=== PATIENT | female | born 1940 | race Caucasian/White ===

== ENCOUNTER 2016-03-01 09:35 | Inpatient (IN) | payer MEDICARE ==
[~2016-03-01] VITALS: Ht 172.7 cm; Wt 69.0 kg
[2016-03-01] MEDS ORDERED: TYLE650T9 PO (13:16)
[2016-03-01] MEDS ORDERED: METO100T PO (13:16)
[2016-03-22] MEDS ORDERED: HYDR-3288 PO (07:24)
[2016-03-22] MEDS ORDERED: APIX2.5T PO (07:25)
[2016-03-22 07:56] VITALS: BP 173/86; PULSE 63; RESP 18; TEMP 97.9; O2SAT 98
[2016-03-22] MEDS ORDERED: ceFAZolin 2 GM PREMIX 50 ML ONE (08:21)
[2016-03-22] MEDS ORDERED: DEXAMETHASONE SOD PHOS 20 MG/5 ML VIAL ONE (08:21)
[2016-03-22] MEDS ORDERED: VANCOMYCIN HCL 1000 MG VIAL ONE (08:21)
[2016-03-22] MEDS ORDERED: SODIUM CHLOR 0.9% 250 ML INJ 250 ML ONE (08:22)
[2016-03-22] MEDS ORDERED: VANCOMYCIN 1000 MG/NS 250 ML (for <70 kg) IV SCH ×2 (08:30)
[2016-03-22] MEDS ORDERED: ceFAZolin 2 GM PREMIX 50 ML IV SCH (08:30)
[2016-03-22] MEDS: POVIDONE IODINE 7.5% SCRUB 118 ML BOTTLE TOP SCH (08:30)
[2016-03-22] MEDS ORDERED: DEXAMETHASONE SOD PHOS 20 MG/5 ML VIAL IV SCH (08:30)
[2016-03-22] MEDS ORDERED: ROPIVACAINE PERI-ARTICULAR INJECTION. PERIART SCH ×5 (08:30)
[2016-03-22] MEDS: CHLORHEXIDINE GLUCONATE 4% SOLN 120 ML BTL TOP SCH (08:30)
[2016-03-22] MEDS ORDERED: LACTATED RINGER'S 1000 ML IV SCH (08:45)
[2016-03-22] MEDS ORDERED: TRANEXAMIC PERI-ARTICULAR 3,000 MG/NS 100 ML P-ARTICULR SCH ×2 (08:45)
[2016-03-22] MEDS ORDERED: SODIUM CHLORID 0.9% 500 ML IV SCH (08:45)
[2016-03-22] MEDS ORDERED: INSULIN HUMAN REGULAR 1,000 UNITS/10 ML VIAL SQ PRN (08:45)
[2016-03-22] MEDS ORDERED: METOPROLOL TARTRATE 25 MG TAB PO PRN (08:45)
[2016-03-22] MEDS ORDERED: EXPAREL PERI-ARTICULAR INJECTION (TOTAL VOL. 60 ML) P-ARTICULR SCH ×2 (08:45)
[2016-03-22] MEDS ORDERED: BISACODYL 10 MG SUPP PR PRN (09:00)
[2016-03-22] MEDS ORDERED: ALUMINUM/MAGNESIUM/SIMETH 30 ML CUP PO PRN (09:00)
[2016-03-22] MEDS ORDERED: NALOXONE HCL 0.4 MG/ML AMP IV PRN (09:00)
[2016-03-22] MEDS ORDERED: ACETAMINOPHEN/HYDROcodone 325 MG/7.5 MG TAB PO PRN (09:00)
[2016-03-22] MEDS ORDERED: ONDANSETRON HCL 4 MG/2 ML VIAL IVP PRN (09:00)
[2016-03-22] MEDS ORDERED: ZOLPIDEM TARTRATE 5 MG TAB PO PRN (09:00)
[2016-03-22] MEDS ORDERED: MAGNESIUM HYDROXIDE SUSP 30 ML CUP PO PRN (09:00)
[2016-03-22] MEDS ORDERED: MIDAZOLAM HCL 5 MG/5 ML VIAL ONE (09:00)
[2016-03-22] MEDS ORDERED: SODIUM CHLORIDE 0.9% FLUSH 5 ML FLUSH IVF PRN (09:00)
[2016-03-22] MEDS ORDERED: MORPHINE SULFATE 4 MG/ML INJ IV PUSH PRN (09:00)
[2016-03-22] MEDS ORDERED: diphenhydrAMINE HCL 50 MG/ML VIAL IV PRN (09:00)
[2016-03-22] MEDS ORDERED: GENTAMICIN SULFATE 80 MG/2 ML VIAL ONE ×2 (09:34→11:46)
[2016-03-22] MEDS ORDERED: TRANEXAMIC ACID INJ 1,005 MG in SODIUM CHLORIDE 0.9% INJ 100 ML IV SCH (10:00)
[2016-03-22] MEDS ORDERED: PROPOFOL 200 MG/20 ML AMP IV ONE (11:45)
[2016-03-22] MEDS ORDERED: LACTATED RINGER'S 1000 ML INJ 1,000 ML IV ONE (11:45)
[2016-03-22] MEDS ORDERED: ONDANSETRON HCL 4 MG/2 ML VIAL IV PUSH ONE (11:45)
[2016-03-22] MEDS ORDERED: BUPIVACAINE LIPOSOME PF 1.3% 20 ML VIAL ONE (12:41)
[2016-03-22] MEDS: SODIUM CHLOR 0.9% 1000 ML INJ 1,000 ML IV SCH ×2 (12:45→20:00)
[2016-03-22] MEDS ORDERED: Post-op Orders (for Pharmacy) MISC XX ONE (12:46)
[2016-03-22] MEDS ORDERED: DO NOT ADM ANY ANTICOAGULANT DRUGS XX PRN (13:00)
[2016-03-22] MEDS ORDERED: MIDAZOLAM HCL 2 MG/2 ML VIAL ONE (13:49)
--- NOTE | 2016-03-22 13:53 | RADRPT ---
EXAM DATE/TIME: 03/22/2016 13:10 [facility] COMPARISON: No previous studies available for comparison. INDICATIONS: Post op right knee MEDICAL HISTORY: None. SURGICAL HISTORY: Total knee replacement, right. ENCOUNTER: Initial ACUITY: 1 day PAIN SCORE: Non-responsive. LOCATION: Right knee FINDINGS: The patient is status post right total knee arthroplasty. The prosthesis appears to be in good posit ion. CONCLUSION: 1. Status post right total arthroplasty with prosthesis in good position. Frank Lo MD on March 22, 2016 at 13:46 Board Certified Radiologist. This report was verified electronically.
[2016-03-22] MEDS ORDERED: *morphine SULFATE 8 MG/ML PERIprocedure ONLY ONE (17:10)
--- NOTE | 2016-03-22 17:24 | PD.CONS ---
HPI Service [facility] Hospitalists Consult Requested By Dr. Farhan Jensen Reason for Consult Medical management Primary Care Physician Jaymie Monroy M.D. Diagnoses: History of Present Illness Ms. Ramirez is a pleasant 76 y/o female with HTN, hyperlipidemia, and osteoarthritis. Pt was [place] [facility] [place] for elective right total knee arthroplasty. [facility] Hospitalist team was consulted to help with managing the pts chronic medical issues. She is seen post-operatively and is without any specific complaints. Her vital signs are stable. No nausea or vomiting pain is currently controlled. Denies any chest pain, SOB, palpitations, dizziness, or abd pain. 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, being followed by PCP Past Surgical History Oral surgery Reported Medications Tylenol 8 Hour Arthritis 650 Mg Tab 2 Tab PO Q8HR PRN Metoprolol Tartrate 100 Mg PO BID Allergies: Coded Allergies: Cipro (Unverified Adverse Reaction, Unknown, 03/22/16) Family History Noncontributory Social History Denies any alcohol, tobacco or illicit drug use Physical Exam Vital Signs Vital Signs Date Time Temp Pulse Resp B/P Pulse Ox O2 Delivery O2 Flow Rate FiO2 03/22/16 15:30 60 15 131/82 96 Nasal Cannula 3 03/22/16 15:00 61 15 148/75 96 Nasal Cannula 3 03/22/16 14:30 58 15 135/71 96 Nasal Cannula 3 03/22/16 14:00 66 15 130/65 96 Nasal Cannula 3 03/22/16 13:45 65 15 135/72 96 Nasal Cannula 3 03/22/16 13:30 66 15 131/70 98 Nasal Cannula 3 03/22/16 13:15 72 15 163/60 98 Nasal Cannula 3 03/22/16 13:00 72 15 163/60 98 Nasal Cannula 3 03/22/16 12:42 98.1 72 15 159/88 98 Nasal Cannula 3 03/22/16 07:56 97.9 63 18 173/86 98 Physical Exam GENERAL: This is a well-nourished, well-developed patient, in no apparent distress. HEENT: Atraumatic. Normocephalic. No temporal or scalp tenderness. No scleral icterus. Airway patent. NECK: Trachea midline, supple, nontender. CARDIO: Regular. RESP: CTA bilaterally. No wheezes, rales, or rhonchi. ABD: +BS, soft, non-tender, nondistended. EXT: Right knee bandages are c/d/i NEURO: Awake and alert. Motor and sensory grossly within normal limits. Normal speech. Laboratory Laboratory Tests Test 03/22/16 07:54 Blood Type A POSITIVE Antibody Screen NEGATIVE Blood Bank Comment Date/Time Procedure Status Source Growth 03/22/16 11:24 Gram Stain - Final Resulted Wound Knee 03/22/16 11:24 Wound Culture Resulted Wound Knee Pending 03/22/16 11:24 Fungal Smear - Final Resulted Wound Knee NO FUNGAL ELEMENTS SEEN. 03/22/16 11:24 Fungal Culture Resulted Wound Knee Pending 03/22/16 11:24 Acid Fast Stain Received Wound Knee Pending 03/22/16 11:24 Mycobacterial Culture Received Wound Knee Pending Imaging Last Impressions Knee X-Ray 03/22/16 0855 Signed Impressions: Service Date/Time: Tuesday, March 22, 2016 13:10 - CONCLUSION: 1. Status post right total arthroplasty with prosthesis in good position. Frank Lo MD Assessment and Plan Problem List: (1) Primary localized osteoarthrosis, lower leg Status: Chronic Plan: - Pt s/p right total knee arthroplasty on 03/22/[address] Jensen - Post-op pain control per Ortho - PT daily - IS - Constipation precautions - DVT prophylaxis (2) HTN (hypertension) Status: Chronic Plan: - Cont. home meds - Monitor Assessment and Plan Patient examined. Assessment and plan formulated with Emilie Woo PA-C. I agree with the above. pt medically stable home bp meds resumed. d/c carley in AM. anticoagulation ordered PT.IS. C planned. Problem Qualifiers (1) Primary localized osteoarthrosis, lower leg: Qualified Code: M17.11 - Primary localized osteoarthrosis, lower leg, right Emilie Woo Mar 22, 2016 17:24 Alli Vallecillo MD Mar 22, 2016 21:33
[2016-03-22 17:45] VITALS: BP 158/74; PULSE 74; RESP 18; TEMP 97.2; O2SAT 99
[2016-03-22 20:00] VITALS: BP 131/66; PULSE 74; RESP 18; TEMP 97.6; O2SAT 100
[2016-03-22] MEDS: METOPROLOL TARTRATE 100 MG TAB PO SCH (20:00)
[2016-03-22] MEDS: SODIUM CHLORIDE 0.9% FLUSH 5 ML FLUSH IVF SCH (21:00)
[2016-03-23] VITALS (7 sets, daily range): BP systolic 102–134; BP diastolic 56–64; PULSE 53–80; RESP 16–18; TEMP 96.4–98.1; O2SAT 95–100
[2016-03-23] MEDS: ACETAMINOPHEN/HYDROcodone 325 MG/7.5 MG TAB PO PRN ×4 (03:19→21:33)
[2016-03-23] MEDS: SODIUM CHLOR 0.9% 1000 ML INJ 1,000 ML IV SCH ×2 (04:55→14:55)
[2016-03-23 06:10] LABS: MEAN CELL VOLUME 84.3 FL (80.0-100.0); MEAN CORPUSCULAR HEMOGLOBIN 27.6 PG (27.0-34.0); MEAN CORPUSCULAR HGB CONC 32.8 % (32.0-36.0); PLATELET COUNT 382 TH/MM3 (150-450); RED BLOOD COUNT 3.68 MIL/MM3 (4.00-5.30); RED CELL DISTRIBUTION WIDTH 15.6 % (11.6-17.2); REVIEW FLAG FINAL; WHITE BLOOD COUNT 15.2 TH/MM3 (4.0-11.0)
[2016-03-23 06:30] LABS: BICARBONATE 23.6 MEQ/L (21.0-32.0); POTASSIUM 4.1 MEQ/L (3.5-5.1)
[2016-03-23] MEDS: CHLORHEXIDINE GLUCONATE 4% SOLN 120 ML BTL TOP SCH (08:30)
[2016-03-23] MEDS: METOPROLOL TARTRATE 100 MG TAB PO SCH ×2 (09:00→20:27)
--- NOTE | 2016-03-23 09:07 | MP ---
cc: YOVANI CARBAJAL DATE OF SURGERY 03/22/2016 PREOPERATIVE DIAGNOSIS Right knee osteoarthritis. POSTOPERATIVE DIAGNOSES Right knee osteoarthritis. PROCEDURE Right total knee arthroplasty. SURGEON Dr. Yovani Carbajal [employer] Keaton Brown PA-C ANESTHESIA General with adductor canal block. ESTIMATED BLOOD LOSS 50 cc. TOURNIQUET TIME 46 minutes at 250 mmHg. COMPLICATIONS None. IMPLANTS USED DePuy Attune size 7 posterior stabilized femoral component, size 6 rotating platform tibial baseplate, size 35-mm patella, size 5-mm polyethylene tibial insert. JUSTIFICATION This patient is a 76-year-old female with a history of severe end-stage osteoarthritis involving the right knee. She has severe disabling pain with standing, walking, ambulation, weightbearing activities and even severe pain at rest. It does interfere with activities of daily living. She has failed greater than three months of nonoperative conservative treatment to include medication therapy, injections, ambulatory assistive aids, home exercise program, activity modification. X-rays of the right knee reveal severe end-stage osteoarthritis with joint space narrowing, subchondral sclerosis, subchondral cysts, osteophyte formation and varus deformity. The patient was counseled as to the risks, benefits and alternatives to a total knee arthroplasty. The risks were discussed which include but are not limited to anesthesia, bleeding, infection, damage to nerves, blood vessels, pain, stiffness, failure of the components, blood clots, pulmonary embolism and even . The patient's pain was severe. She favored the benefits over the risks and did wish to proceed with surgery. PROCEDURE IN DETAIL Written consent was obtained. The patient was identified by name and taken to the operating room, placed supine on the operating room table. General anesthesia was administered as well as 2 grams of IV Ancef and 1 gram of IV vancomycin. A well-padded tourniquet was placed on the right thigh, the right lower extremity prepped and draped using isopropyl alcohol, Hibiclens solution and ChloraPrep solution. An Esmarch bandage was used to exsanguinate the right lower extremity and the tourniquet inflated to 250 mmHg. A longitudinal incision was made over the anterior aspect of the right knee and medial parapatellar arthrotomy incision was performed. The patella was everted. Patella resection guide was used to resect 9.5 mm of patella. The size 35-mm patella guide was placed, three drill holes were placed and the 35-mm trial fit well. Attention was turned to the femur where an intramedullary guide flavio was placed. The distal femoral guide was set to remove 9 mm of distal femur 5 degrees off the anatomic valgus axis alignment. An oscillating saw was used to perform the distal femoral cut. The extramedullary tibial guide was then pinned in place. The tibial cut was performed with 5 mm resected off the lowest portion of the medial tibial plateau. A 5-mm spacer block showed full extension. Attention was turned back to the femur where the AP sizer block measured a size 7. The anterior reference 3-degree external rotational guide was used to pin a size [address] The anterior, posterior and chamfer cuts were performed. The size 7 PCL box guide was pinned in place and the PCL was boxed out with an oscillating saw. The medial and lateral meniscus remnants were removed as well as bone and soft tissue debris from the posterior portion of the knee. The size 6 tibial baseplate was pinned in place, the tibia was drilled and punched. Trial components were evaluated and final components cemented in place. With the 5-mm tibial insert the leg could achieve full extension to 0 degrees and flexion to 140 with no evidence of tibial lift-off, varus-valgus balance appeared appropriate and symmetric and the patella was noted to track centrally. The tourniquet was deflated, Bovie cautery was used for hemostasis. The knee was thoroughly irrigated with sterile saline pulse lavage antibiotic impregnated solution. The arthrotomy incision was closed with #1 Vicryl suture, the subcutaneous layer closed with 2-0 Vicryl suture and the skin was closed with Dermabond. Sterile dressing applied. The patient tolerated the procedure well. There were no intraoperative complications noted. Keaton Brown, physician executive marketing assistant certified, was present during the entire procedure to include patient positioning and the procedure itself. The medical necessity of a physician executive marketing assistant was indicated in this case due to the complexity of the procedure. He assisted with appropriate manipulation of the leg, retraction of muscle, tendon, bone and neurovascular structures. He also assisted with bone cuts and also implantation of the prosthetic replacement. Yovani Carbajal MD JWSaman/KO /12:17 PM /8:51 AM
[2016-03-23] MEDS: SODIUM CHLORIDE 0.9% FLUSH 5 ML FLUSH IVF SCH ×2 (09:13→20:27)
--- NOTE | 2016-03-23 10:01 | PD.ORT.PN ---
Subjective Post Op Day #: 1 Subjective Remarks doing well. pain tolerable. Objective Vitals Vital Signs Date Time Temp Pulse Resp B/P Pulse Ox O2 Delivery O2 Flow Rate FiO2 03/23/16 09:24 98 21 03/23/16 08:10 96.4 63 16 102/60 95 03/23/16 04:00 96.7 53 18 103/58 96 03/23/16 00:00 96.4 56 18 105/57 97 03/22/16 20:00 97.6 74 18 131/66 100 03/22/16 17:45 97.2 74 18 158/74 99 03/22/16 17:15 97.8 71 17 149/75 97 Nasal Cannula 3 03/22/16 17:00 77 17 155/75 94 Nasal Cannula 3 03/22/16 16:30 70 16 155/81 96 Nasal Cannula 3 03/22/16 16:00 70 16 116/83 96 Nasal Cannula 3 03/22/16 15:30 60 15 131/82 96 Nasal Cannula 3 03/22/16 15:00 61 15 148/75 96 Nasal Cannula 3 03/22/16 14:30 58 15 135/71 96 Nasal Cannula 3 03/22/16 14:00 66 15 130/65 96 Nasal Cannula 3 03/22/16 13:45 65 15 135/72 96 Nasal Cannula 3 03/22/16 13:30 66 15 131/70 98 Nasal Cannula 3 03/22/16 13:15 72 15 163/60 98 Nasal Cannula 3 03/22/16 13:00 72 15 163/60 98 Nasal Cannula 3 03/22/16 12:42 98.1 72 15 159/88 98 Nasal Cannula 3 I/O 03/22/16 03/22/16 03/22/16 03/23/16 03/23/16 03/23/16 07:00 15:00 23:00 07:00 15:00 23:00 Intake Total 1100 ml 1355 ml 480 ml Output Total 300 ml 350 ml 850 ml Balance 800 ml 1005 ml -370 ml Intake Oral 480 ml 480 ml IV Total 875 ml Other 1100 ml Output Urine Total 100 ml 350 ml 850 ml Estimated Blood Loss 200 ml Result Diagram: 03/23/16 0542 03/23/16 0542 Objective Remarks in chair, nad dressing c/d/i beena king nvi Assessment & Plan Ortho Post Op Day #: 1 Problem List: Assessment and Plan s/p R TKA wbat daily dressing changes lovenox - d/c on eliquis d/c planning home with [facility] and pt rx in chart f/up dr. bueno 2 weeks Farhan Brown Mar 23, 2016 10:01
--- NOTE | 2016-03-23 10:02 | HHI.DCPOC ---
Discharge Care Plan Diagnosis: (1) Primary localized osteoarthrosis, lower leg Your Health Problems Are: Difficulty with ADL Goals to Promote Your Health * To prevent worsening of your condition and complications * To maintain your health at the optimal level Directions to Meet Your Goals Take your medications as prescribed Follow your dietary instruction Follow activity as directed Keep your appointments as scheduled Take your immunizations and boosters as scheduled If your symptoms worsen call your PCP, if no PCP go to Urgent Care Center or Emergency Room Smoking is Dangerous to Your Health. Avoid second hand smoke Call the 24-hour hour crisis hotline for domestic abuse at Farhan Brown Mar 23, 2016 10:02
--- NOTE | 2016-03-23 10:03 | HHI.FF ---
Face to Face Verification Diagnosis: (1) Primary localized osteoarthrosis, lower leg Physical Therapy Gait training, Safety evaluation, Transfer training, bed to chair Knee: Total knee, Protocol: Right Right LE Weight Bearing: WB as tolerated Nursing RN: 3 days/week x 2 weeks Nursing: Dressing changes Dressing Changes: Daily dressing change I have seen patient Jigna Ramirez on 03/23/16. My clinical findings support the need for the requested home health care services because: Limited ability to care for self High risk of falls I certify that my clinical findings support that this patient is homebound because: Post-op weakness Unsteady gait/balance Farhan Brown Mar 23, 2016 10:03
[2016-03-23] MEDS ORDERED: WALKER WHEELS/F1 MIS (10:04)
[2016-03-23] MEDS ORDERED: MISC-163 (10:04)
[2016-03-23] MEDS ORDERED: CPMMACHINE (10:04)
[2016-03-23] MEDS: ENOXAPARIN SODIUM 40 MG/0.4 ML SYRINGE SQ SCH (13:06)
[2016-03-23] MEDS: DOCUSATE SODIUM 100 MG CAP PO SCH (20:27)
[2016-03-23] MEDS: MULTIVITAMINS/MINERALS THERAPEUTIC TAB PO SCH (20:27)
[2016-03-24 00:54] VITALS: BP 115/56; PULSE 97; RESP 18; TEMP 98.1; O2SAT 97
[2016-03-24] MEDS: SODIUM CHLOR 0.9% 1000 ML INJ 1,000 ML IV SCH ×2 (00:55→10:55)
[2016-03-24] MEDS: ACETAMINOPHEN/HYDROcodone 325 MG/7.5 MG TAB PO PRN ×4 (02:34→15:49)
[2016-03-24 04:39] VITALS: BP 127/68; PULSE 84; RESP 18; TEMP 98; O2SAT 98
[2016-03-24 06:23] LABS: MEAN CELL VOLUME 85.2 FL (80.0-100.0); MEAN CORPUSCULAR HEMOGLOBIN 28.4 PG (27.0-34.0); MEAN CORPUSCULAR HGB CONC 33.3 % (32.0-36.0); PLATELET COUNT 360 TH/MM3 (150-450); RED BLOOD COUNT 3.52 MIL/MM3 (4.00-5.30); RED CELL DISTRIBUTION WIDTH 15.8 % (11.6-17.2); REVIEW FLAG FINAL
[2016-03-24 06:53] LABS: BICARBONATE 26.2 MEQ/L (21.0-32.0); POTASSIUM 3.8 MEQ/L (3.5-5.1)
[2016-03-24] MEDS: CHLORHEXIDINE GLUCONATE 4% SOLN 120 ML BTL TOP SCH (08:21)
[2016-03-24 08:24] VITALS: BP 106/59; PULSE 64; RESP 18; TEMP 97.8; O2SAT 97
[2016-03-24] MEDS: POVIDONE IODINE 7.5% SCRUB 118 ML BOTTLE TOP SCH (08:30)
[2016-03-24] MEDS: SODIUM CHLORIDE 0.9% FLUSH 5 ML FLUSH IVF SCH (09:00)
[2016-03-24] MEDS: METOPROLOL TARTRATE 100 MG TAB PO SCH (09:00)
--- NOTE | 2016-03-24 09:18 | PD.ORT.PN ---
Subjective Post Op Day #: 2 Subjective Remarks doing well. pain tolerable. feeling better and ready to go home. Objective Vitals Vital Signs Date Time Temp Pulse Resp B/P Pulse Ox O2 Delivery O2 Flow Rate FiO2 03/24/16 08:24 97.8 64 18 106/59 97 03/24/16 04:39 98.0 84 18 127/68 98 03/24/16 00:54 98.1 97 18 115/56 97 03/23/16 21:20 98.1 80 16 134/62 97 03/23/16 16:20 97.6 66 16 118/56 100 03/23/16 12:30 97.1 66 18 118/64 97 03/23/16 09:24 98 21 I/O 03/23/16 03/23/16 03/23/16 03/24/16 03/24/16 03/24/16 07:00 15:00 23:00 07:00 15:00 23:00 Intake Total 480 ml 860 ml 240 ml 240 ml Output Total 850 ml Balance -370 ml 860 ml 240 ml 240 ml Intake Oral 480 ml 860 ml 240 ml 240 ml Output Urine Total 850 ml # Voids 3 2 2 # Bowel Movements 0 0 Result Diagram: 03/24/1612 03/24/16511 Objective Remarks in bed, nad incision no erythema, no drainage neg homans nvi Assessment & Plan Ortho Post Op Day #: 2 Problem List: Assessment and Plan s/p R TKA wbat daily dressing changes lovenox - d/c on eliquis d/c planning home with [facility] and pt - cleared for d/c today rx in chart f/up dr. bueno 2 weeks Farhan Brown Mar 24, 2016 09:18
[2016-03-24] MEDS: MULTIVITAMINS/MINERALS THERAPEUTIC TAB PO SCH (09:25)
[2016-03-24] MEDS: DOCUSATE SODIUM 100 MG CAP PO SCH (09:25)
[2016-03-24] MEDS: ENOXAPARIN SODIUM 40 MG/0.4 ML SYRINGE SQ SCH (11:22)
[2016-03-24 12:30] VITALS: BP 118/56; PULSE 66; RESP 16; TEMP 98.1; O2SAT 96
== END 2016-03-24 16:18 | disposition home health service (06) | DRG 470 ==
LOC: HSDI 03-22 06:57 → N06B 03-22 17:35
PROVIDERS: ADMIT Orthopaedic Surgery Sports Medicine; ATTEND Orthopaedic Surgery Sports Medicine
PROC: 3E0T3CZ (ICD-10-PCS; 2016-03-22)
PROC: 0SRC0J9 Replacement of Right Knee Joint with Synthetic Substitute, Cemented, Open Approach (ICD-10-PCS; principal; 2016-03-22 10:22)
DX: M17.11 Unilateral primary osteoarthritis, right knee (principal); I10 Essential (primary) hypertension; E78.5 Hyperlipidemia, unspecified; R91.8 Other nonspecific abnormal finding of lung field
CPT/HCPCS: 73560; 80048; 85027; 86850; 86900; 86901; 87015; 87070; 87102; 87116; 87205; 87206; 94150; C1776; C9290; J0171; J0690; J0735; J1100; J1580; J1650; J1885; J2250; J2270; J2405; J2795; J3010; J3370; J7030; J7050; J7120; L1830

== ENCOUNTER 2016-06-14 09:57 | Inpatient (IN) | payer MEDICARE ==
[~2016-06-14] VITALS: Ht 172.7 cm; Wt 75.1 kg
[~2016-06-14 09:57] MED LIST changes: -ACET1CAP18 PO; -APIX2.5T PO; -ASPI81TA2 PO; -CPMMACHINE; -ENOX40P SQ; -HYDR-3288 PO; -MISC-163; -PERC5TAB12 PO; -WALKER WHEELS/F1 MIS
[2016-06-30] MEDS ORDERED: NEOSTIGMINE 3 MG/3 ML SYR IV ONE (12:00)
[2016-06-30] MEDS ORDERED: PROPOFOL 200 MG/20 ML AMP IV ONE (12:00)
[2016-06-30] MEDS ORDERED: ONDANSETRON HCL 4 MG/2 ML VIAL IV PUSH ONE (12:00)
[2016-06-30] MEDS ORDERED: ePHEDrine/NS 25 MG/5 ML SYR IV ONE (12:00)
[2016-06-30] MEDS ORDERED: ACET1CAP18 PO (12:04)
[2016-06-30 12:06] VITALS: BP 124/69; PULSE 63; RESP 20; TEMP 98.5; O2SAT 98
[2016-06-30] MEDS ORDERED: DEXAMETHASONE SOD PHOS 20 MG/5 ML VIAL ONE (12:14)
[2016-06-30] MEDS ORDERED: ceFAZolin 2 GM PREMIX 50 ML ONE (12:14)
[2016-06-30] MEDS ORDERED: INSULIN HUMAN REGULAR 1,000 UNITS/10 ML VIAL SQ PRN (12:15)
[2016-06-30] MEDS ORDERED: SODIUM CHLORID 0.9% 500 ML IV PRN (12:15)
[2016-06-30] MEDS: CHLORHEXIDINE GLUCONATE 4% SOLN 120 ML BTL TOPICAL SCH (12:15)
[2016-06-30] MEDS ORDERED: LACTATED RINGER'S 1000 ML IV PRN (12:15)
[2016-06-30] MEDS ORDERED: ceFAZolin 2 GM PREMIX 50 ML IV SCH (12:15)
[2016-06-30] MEDS ORDERED: CHLORHEXIDINE GLUCONATE 2 % 1 PACK (2 CLOTHS) TOPICAL PRN (12:15)
[2016-06-30] MEDS ORDERED: METOPROLOL TARTRATE 25 MG TAB PO PRN (12:15)
[2016-06-30] MEDS ORDERED: POVIDONE IODINE 5% (ANTISEPSIS KIT) 4 APPLICATIONS EACH NARE PRN (12:15)
[2016-06-30] MEDS ORDERED: VANCOMYCIN 1000 MG/NS 250 ML (for <70 kg) IV SCH ×2 (12:15)
[2016-06-30] MEDS ORDERED: POVIDONE IODINE 7.5% SCRUB 118 ML BOTTLE TOPICAL SCH (12:15)
[2016-06-30] MEDS ORDERED: SODIUM CHLOR 0.9% 250 ML INJ 250 ML ONE (12:26)
[2016-06-30] MEDS ORDERED: TRANEXAMIC PERI-ARTICULAR 3,000 MG/NS 100 ML P-ARTICULR SCH ×2 (12:30)
[2016-06-30] MEDS ORDERED: SODIUM CHLORIDE 0.9% IV SCH (12:30)
[2016-06-30] MEDS ORDERED: TRANEXAMIC ACID IV SCH (12:30)
[2016-06-30] MEDS ORDERED: ROPIVACAINE PERI-ARTICULAR INJECTION. P-ARTICULR SCH ×5 (12:30)
[2016-06-30] MEDS ORDERED: DEXAMETHASONE SOD PHOS 20 MG/5 ML VIAL IV ONE (12:30)
[2016-06-30] MEDS ORDERED: BUPIVACAINE LIPOSOME PF 1.3% 20 ML VIAL ONE (12:35)
[2016-06-30] MEDS ORDERED: GENTAMICIN SULFATE 80 MG/2 ML VIAL ONE (12:58)
[2016-06-30] MEDS: SODIUM CHLOR 0.9% 1000 ML INJ 1,000 ML IV SCH ×2 (13:02→22:56)
[2016-06-30] MEDS ORDERED: PERC5TAB12 PO (13:04)
[2016-06-30] MEDS ORDERED: MIDAZOLAM HCL 2 MG/2 ML VIAL ONE (13:05)
[2016-06-30] MEDS ORDERED: ENOX40P SQ (13:05)
[2016-06-30] MEDS ORDERED: FAMOTIDINE 20 MG/2 ML VIAL ONE (13:05)
[2016-06-30] MEDS ORDERED: ASPI81TA2 PO (13:06)
[2016-06-30] MEDS ORDERED: ALUMINUM/MAGNESIUM/SIMETH 30 ML CUP PO PRN (13:15)
[2016-06-30] MEDS ORDERED: SODIUM CHLORIDE 0.9% FLUSH 5 ML FLUSH IVF PRN (13:15)
[2016-06-30] MEDS ORDERED: diphenhydrAMINE HCL 50 MG/ML VIAL IV PRN (13:15)
[2016-06-30] MEDS ORDERED: NALOXONE HCL 0.4 MG/ML AMP IV PRN (13:15)
[2016-06-30] MEDS ORDERED: BISACODYL 10 MG SUPP RECTAL PRN (13:15)
[2016-06-30] MEDS ORDERED: ONDANSETRON HCL 4 MG/2 ML VIAL IVP PRN (13:15)
[2016-06-30] MEDS ORDERED: MORPHINE SULFATE 4 MG/ML INJ IV PUSH PRN (13:15)
[2016-06-30] MEDS ORDERED: oxyCODONE/ACETAMINOPHEN 5 MG/325 MG TAB PO PRN (13:15)
[2016-06-30] MEDS ORDERED: Post-op Orders (for Pharmacy) MISC XX ONE (13:15)
[2016-06-30] MEDS ORDERED: fentaNYL CITRATE 250 MCG/5 ML AMP ONE (15:21)
[2016-06-30] MEDS ORDERED: *morphine SULFATE 8 MG/ML PERIprocedure ONLY ONE (15:40)
--- NOTE | 2016-06-30 16:21 | PD.CONS ---
HPI Service [facility] Hospitalists Consult Requested By Dr. Farhan Jensen Reason for Consult Medical management Primary Care Physician Dr. Jaymie Underwood Diagnoses: History of Present Illness Ms. Ramirez is a pleasant 76 y/o female with HTN, hyperlipidemia, and osteoarthritis. Pt was admitted to [facility] [place] on 06/30/16 for an elective left total knee arthroplasty with Dr. Jensen. Pt was seen previously in March 2016 when she was admitted for her right total knee arthroplasty. Pt did well post- operatively during that hospitalization. She was readmitted for her left total knee and [facility] Hospitalist team was consulted to help with managing the pts chronic medical issues. She is seen post-operatively and is without any specific complaints. Her vital signs are stable. No nausea or vomiting. Her pain is currently controlled. Denies any chest pain, SOB, palpitations, dizziness, or abd pain. 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 Jensen Oral surgery Reported Medications Tylenol (Acetaminophen) 325 Mg Cap 650 Mg PO Q6H PRN Metoprolol Tartrate 100 Mg Tab 100 Mg PO BID Allergies: Coded Allergies: Hydrocodone (Verified Allergy, Severe, Hives, 06/30/16) Cipro (Unverified Adverse Reaction, Unknown, 06/30/16) Family History Noncontributory Social History Denies any alcohol, tobacco or illicit drug use Physical Exam Vital Signs Vital Signs Date Time Temp Pulse Resp B/P Pulse Ox O2 Delivery O2 Flow Rate FiO2 06/30/16 15:10 97.4 65 16 146/72 94 Nasal Cannula 3 06/30/16 12:06 98.5 63 20 124/69 98 Physical Exam GENERAL: This is a well-nourished, well-developed patient, in no apparent distress. HEENT: Atraumatic. Normocephalic. No temporal or scalp tenderness. No scleral icterus. Airway patent. NECK: Trachea midline, supple, nontender. CARDIO: Regular. RESP: CTA bilaterally. No wheezes, rales, or rhonchi. ABD: +BS, soft, non-tender, nondistended. EXT: Left knee bandages are c/d/i NEURO: Awake and alert. Motor and sensory grossly within normal limits. Normal speech. Laboratory Laboratory Tests Test 06/30/16 12:15 Blood Type A POSITIVE Assessment and Plan Problem List: (1) Primary localized osteoarthrosis, lower leg Status: Chronic Plan: - Pt s/p left total knee arthroplasty on 06/30/[address] Jensen - Post-op pain control per Ortho - PT daily - IS - Constipation precautions - DVT prophylaxis (2) HTN (hypertension) Status: Chronic Plan: - Cont. home meds - Monitor Assessment and Plan Patient examined. Assessment and plan formulated with Emilie Woo PA-C. I agree with the above. Pt seen in [facility]. she is doing very well. vitals stable her goal is for d/c home with [facility] tomorrow. d/c howe in AM dvt prophylaxis. home meds ordered. will follow. Problem Qualifiers (1) Primary localized osteoarthrosis, lower leg: Qualified Code: M17.12 - Primary localized osteoarthrosis, lower leg, left Emilie Woo Jun 30, 2016 16:21 Alli Vallecillo MD Jun 30, 2016 17:38
--- NOTE | 2016-06-30 16:24 | RADRPT ---
EXAM DATE/TIME: 06/30/2016 15:07 [facility] COMPARISON: No previous studies available for comparison. INDICATIONS : Status post left knee total arthroplasty. MEDICAL HISTORY : None. SURGICAL HISTORY : None. ENCOUNTER: Subsequent ACUITY: 1 day PAIN SCORE: Non-responsive. LOCATION: Left Knee FINDINGS: AP and lateral views of the knee following arthroplasty reveals a prosthesis in anatomic alignment. F racture is not appreciated. CONCLUSION: Status post total knee arthroplasty. Romero Renner MD FACR Board Certified Radiologist. This report was verified electronically.
[2016-06-30 19:46] VITALS: BP 117/68; PULSE 76; RESP 18; TEMP 96.9; O2SAT 96
[2016-06-30] MEDS: METOPROLOL TARTRATE 100 MG TAB PO SCH (19:54)
[2016-06-30] MEDS: SODIUM CHLORIDE 0.9% FLUSH 5 ML FLUSH IVF SCH (19:54)
[2016-06-30] MEDS ORDERED: ZOLPIDEM TARTRATE 5 MG TAB PO PRN (21:00)
[2016-06-30] MEDS: oxyCODONE/ACETAMINOPHEN 5 MG/325 MG TAB PO PRN (21:37)
[2016-07-01 00:01] VITALS: BP 103/58; PULSE 54; RESP 18; TEMP 96; O2SAT 98
[2016-07-01 04:22] VITALS: BP 118/62; PULSE 81; RESP 18; TEMP 96.2; O2SAT 94
[2016-07-01] MEDS ORDERED: SODIUM CHLORID 0.9% 500 ML INJ 500 ML IV ONE (06:00)
[2016-07-01 06:30] LABS: HEMATOCRIT 32.1 % (35.0-46.0); MEAN CELL VOLUME 87.7 FL (80.0-100.0); MEAN CORPUSCULAR HEMOGLOBIN 29.4 PG (27.0-34.0); MEAN CORPUSCULAR HGB CONC 33.5 % (32.0-36.0); PLATELET COUNT 337 TH/MM3 (150-450); RED BLOOD COUNT 3.65 MIL/MM3 (4.00-5.30); RED CELL DISTRIBUTION WIDTH 13.7 % (11.6-17.2); REVIEW FLAG FINAL; WHITE BLOOD COUNT 17.8 TH/MM3 (4.0-11.0)
[2016-07-01 06:48] LABS: POTASSIUM 4.5 MEQ/L (3.5-5.1)
[2016-07-01] MEDS: CHLORHEXIDINE GLUCONATE 4% SOLN 120 ML BTL TOPICAL SCH (07:05)
[2016-07-01] MEDS: SODIUM CHLORIDE 0.9% FLUSH 5 ML FLUSH IVF SCH (07:45)
[2016-07-01] MEDS: METOPROLOL TARTRATE 100 MG TAB PO SCH (07:45)
[2016-07-01] MEDS: oxyCODONE/ACETAMINOPHEN 5 MG/325 MG TAB PO PRN ×2 (07:46→12:12)
[2016-07-01] MEDS: SODIUM CHLOR 0.9% 1000 ML INJ 1,000 ML IV SCH (07:54)
[2016-07-01 08:00] VITALS: BP 121/89; PULSE 58; RESP 18; TEMP 96.2; O2SAT 98
[2016-07-01 08:07] VITALS: O2SAT 98
[2016-07-01 12:00] VITALS: BP 103/60; PULSE 43; RESP 18; TEMP 96.3; O2SAT 97
--- NOTE | 2016-07-01 12:34 | PD.ORT.PN ---
Subjective Post Op Day #: 1 Subjective Remarks doing well. ready to go home. Objective Vitals Vital Signs Date Time Temp Pulse Resp B/P Pulse Ox O2 Delivery O2 Flow Rate FiO2 07/01/16 12:00 96.3 43 18 103/60 97 07/01/16 08:07 98 21 07/01/16 08:00 96.2 58 18 121/89 98 07/01/16 04:22 96.2 81 18 118/62 94 07/01/16 00:01 96.0 54 18 103/58 98 06/30/16 19:46 96.9 76 18 117/68 96 06/30/16 16:00 62 16 134/66 98 Nasal Cannula 3 06/30/16 15:45 52 16 130/64 98 Nasal Cannula 3 06/30/16 15:30 58 16 129/69 99 Nasal Cannula 3 06/30/16 15:15 70 16 148/79 93 Nasal Cannula 3 06/30/16 15:10 97.4 65 16 146/72 94 Nasal Cannula 3 I/O 06/30/16 06/30/16 06/30/16 07/01/16 07/01/16 07/01/16 07:00 15:00 23:00 07:00 15:00 23:00 Intake Total 1220 ml 240 ml Output Total 140 ml 150 ml Balance 1080 ml 90 ml Intake Oral 220 ml 240 ml IV Total 100 ml Other 900 ml Output Urine Total 50 ml 150 ml Estimated Blood Loss 50 ml Other 40 ml # Voids 75 1 # Bowel Movements 0 0 Result Diagram: 07/01/16 0542 07/01/16 0542 Imaging Last 24 hours Impressions Knee X-Ray 06/30/16 1302 Signed Impressions: Service Date/Time: Thursday, June 30, 2016 15:07 - CONCLUSION: Status post total knee arthroplasty. Romero Renner MD Objective Remarks in bed, nad incision no erythema, no drainage neg homans nvi Assessment & Plan Ortho Post Op Day #: 1 Problem List: Assessment and Plan s/p L TKA wbat daily dressing changes lovenox d/c planning home with [facility] and pt - cleared for d/c today rx in chart f/up dr. bueno 2 weeks Farhan Brown Jul 01, 2016 12:34
[2016-07-01] MEDS ORDERED: APIX2.5T PO (12:36)
--- NOTE | 2016-07-01 12:36 | HHI.DCPOC ---
Discharge Care Plan Diagnosis: (1) Primary localized osteoarthrosis, lower leg Your Health Problems Are: Difficulty with ADL Goals to Promote Your Health * To prevent worsening of your condition and complications * To maintain your health at the optimal level Directions to Meet Your Goals Take your medications as prescribed Follow your dietary instruction Follow activity as directed Keep your appointments as scheduled Take your immunizations and boosters as scheduled If your symptoms worsen call your PCP, if no PCP go to Urgent Care Center or Emergency Room Smoking is Dangerous to Your Health. Avoid second hand smoke Call the 24-hour hour crisis hotline for domestic abuse at Farhan rBown Jul 01, 2016 12:36
--- NOTE | 2016-07-01 12:37 | HHI.FF ---
Face to Face Verification Diagnosis: (1) Primary localized osteoarthrosis, lower leg Physical Therapy Gait training, Safety evaluation, Transfer training, bed to chair Knee: Total knee, Protocol: Left Left LE Weight Bearing: WB as tolerated Nursing Nursing: Dressing changes Dressing Changes: Daily dressing change I have seen patient Jigna Ramirez on 07/01/16. My clinical findings support the need for the requested home health care services because: Limited ability to care for self High risk of falls I certify that my clinical findings support that this patient is homebound because: Post-op weakness Unsteady gait/balance Farhan Brown Jul 01, 2016 12:37
[2016-07-01] MEDS ORDERED: CPMMACHINE (12:38)
[2016-07-01] MEDS ORDERED: ENOXAPARIN SODIUM 40 MG/0.4 ML SYRINGE SQ SCH (14:00)
[2016-07-01] MEDS ORDERED: MULTIVITAMINS/MINERALS THERAPEUTIC TAB PO SCH (21:00)
[2016-07-01] MEDS ORDERED: DOCUSATE SODIUM 100 MG CAP PO SCH (21:00)
--- NOTE | 2016-07-02 09:14 | MP ---
cc: YOVANI CARBAJAL DATE OF SURGERY 06/30/2016 PREOPERATIVE DIAGNOSIS Left knee osteoarthritis POSTOPERATIVE DIAGNOSES Left knee osteoarthritis PROCEDURE Left total knee arthroplasty SURGEON Dr. Yovani Carbajal PLAYER SERVICES REPRESENTATIVE LEONARDO Dill ANESTHESIA General with a femoral nerve block ESTIMATED BLOOD LOSS 50 cc COMPLICATIONS None TOURNIQUET TIME 38 minutes at 250 mmHg IMPLANTS USED DePuy attune size 7 posterior stabilized femoral component, size 7 rotating platform tibia baseplate, size 6 mm polyethylene tibial insert, size 35 patella. JUSTIFICATION This patient is A 76-year female with a history severe end-stage degenerative osteoarthritis involving the left knee. She has severe disabling pain with standing, walking, ambulation, weight-bearing activities, even severe pain at rest. She has failed greater than three months of nonoperative conservative to include medication therapy, injections, ambulatory assistive aids, home exercise program, activity modification and weight loss. The patient has x-rays of the left knee that reveal severe end-stage osteoarthritis with [id number] joint space narrowing, subchondral sclerosis, subchondral cyst, osteophyte formation and varus deformity. The patient was counseled as to the risks, benefits and alternative to a total knee arthroplasty. The risks of which were discussed to include, but not limited to the anesthesia, infection, damage to nerves, blood vessels, pain, stiffness, blood clots, pulmonary embolism and even . The patient's pain is severe. She favored the benefits over the risks and did wish to proceed with surgery. PROCEDURE IN DETAIL A written consent was obtained. The patient identified by name, taken to the operating room, placed in the supine position. A femoral nerve block was administered by the anesthesiologist to the left lower extremity. General anesthesia was administered as well as two grams of IV Ancef and one gram of IV vancomycin. A well-padded tourniquet was placed on the left leg. The left lower extremity prepped and draped using Isopropyl alcohol, Hibiclens solution, and Chloraprep solution. After a time-out was performed, an Esmarch bandage was used to exsanguinate the left lower extremity and the tourniquet was inflated to 250 mmHg. A longitudinal incision made in the anterior aspect of the left knee. A medial parapatellar arthrotomy was performed. The patella was everted. Patellar resection guide was used to resect 7 mm of patella. The size 35 mm guide was placed. Three drill holes were placed. A 35 mm trial fit well. Attention was turned to the femur where an intramedullary guidewire was placed. The distal femoral guide was set to remove 10 mm of the distal femur, 5 degrees off the anatomic valgus axis alignment. An oscillating saw was used to perform a distal femoral cut. Attention was turned to the tibia where an extramedullary tibial guide was used to resect 5 mm off the lowest portion of the medial tibial plateau. The tibia guide was pinned in place. A tibial cut was performed. A 5 mm spacer block showed full extension. Attention turned back to the femur. The AP sizing block measured to a size seven. The anterior reference three degree external rotation guide was used to pin a size [address] Anterior, posterior and chamfer were performed. A size seven PCL block was pinned in place. The PCL block cut with an oscillating saw. The medial and lateral meniscus remnants were removed, as well as bone and soft tissue debris from the posterior portion of the knee. A size seven tibia base was pinned in placed. The tibia was drilled and punched. Trial components were evaluated and cemented in place with a 6-mm tibial insert the leg could achieve full extension to 0 degrees and flexion 140, no evidence of tibial lift-off. Varus-valgus balance appeared appropriate and symmetric. The patella was noted to track centrally. The tourniquet was deflated. Bovie cautery was used to obtain hemostasis. The arthrotomy incision was closed with #1 Vicryl suture, subcutaneous layer 2-0 Vicryl suture, skin was closed with Dermabond. A sterile dressing applied. The patient tolerated the procedure well with no intraoperative complications noted. NOTE Keaton Brown, Physician [employer] Hanger Certified, was present during the entire procedure to include patient positioning and the procedure itself. The medical necessity of a physician internet marketing assistant was indicated in this case due to the complexity of the procedure, he assisted with appropriate manipulation of the leg and also traction of muscle, tendon, bone and neurovascular structures. He assisted with resection of bone and also implantation of prosthetic replacement. MD ELE Boggs/MEL /2:49 PM /9:01 AM
--- NOTE | 2016-07-08 10:43 | MD ---
cc: YOVANI JENSEN ADMISSION DATE: 06/30/2016 DISCHARGE DATE: 07/01/2016 ADMITTING DIAGNOSIS Severe degenerative osteoarthritis left knee DISCHARGE DIAGNOSIS Severe degenerative osteoarthritis left knee HISTORY OF PRESENT ILLNESS Ms. Ramirez is a 76-year-old female who has been treated by Dr. Yovani Jensen at the [facility] for her progressive left knee pain. The patient states her left knee pain is inhibiting her activities of daily living. She has a severe aching sensation in the left knee which is exacerbated with weight-bearing activities. She does have a history of a well-functioning right total knee arthroplasty. She notes for the left knee, she has tried multiple medications, physical therapy, home exercise program, knee brace and multiple corticosteroid injections without relief of her symptoms. She does have x-ray evidence of severe degenerative osteoarthritis of the left knee. While in the office, the patient was counseled on her diagnosis and treatment options. The risks, benefits, and indications of all were discussed in great detail. The patient did elect to proceed with surgical admission to include a left total knee arthroplasty. Date of surgery 06/30/2016, left total knee arthroplasty. Postop after surgery, the patient admitted to at [facility] where she received appropriate medical management, pain control, DVT prophylaxis, as well as physical therapy. Once being discharged from the hospital, the patient has been cleared to go home where she will receive home health care and home physical therapy. She is in stable condition. She may weight-bear as tolerated. Patient is to receive daily dressing changes and has been instructed on appropriate wound care management. She has been provided prescriptions for pain control as well as DVT prophylaxis medication. She has also been provided a follow-up appointment to see Dr. Yovani Jensen in the office in approximately two weeks from her date of surgery. The patient asked appropriate questions which have been answered. The patient has been discharged. Dictated by LEONARDO Ingram MD ELE Boggs/MEL /11:56 AM /10:08 AM
== END 2016-07-01 15:19 | disposition home health service (06) | DRG 470 ==
LOC: HSDI 06-30 11:21 → N06B 06-30 17:45
PROVIDERS: ADMIT Orthopaedic Surgery Sports Medicine; ATTEND Orthopaedic Surgery Sports Medicine
PROC: 3E0T3CZ (ICD-10-PCS; 2016-06-30)
PROC: 0SRD0J9 Replacement of Left Knee Joint with Synthetic Substitute, Cemented, Open Approach (ICD-10-PCS; principal; 2016-06-30 13:16)
DX: M17.12 Unilateral primary osteoarthritis, left knee (principal); I10 Essential (primary) hypertension; E78.5 Hyperlipidemia, unspecified; Z96.651 Presence of right artificial knee joint; R91.8 Other nonspecific abnormal finding of lung field; Z88.1 Allergy status to other antibiotic agents; Z88.5 Allergy status to narcotic agent
CPT/HCPCS: 73560; 76937; 80048; 85027; 86850; 86900; 86901; 94150; C1776; C9290; J0171; J0690; J0735; J1100; J1580; J1650; J1885; J2250; J2270; J2405; J2710; J2795; J3010; J7030; J7040; J7050; L1830

== ENCOUNTER → 2016-06-14 | Outpatient (CLI) | payer MEDICARE ==
[~2016-06-14] MED LIST: ACET1CAP18 PO; APIX2.5T PO; ASPI81TA2 PO; CPMMACHINE; ENOX40P SQ; HYDR-3288 PO; METO100T PO; MISC-163; PERC5TAB12 PO; WALKER WHEELS/F1 MIS
[2016-06-14 11:14] LABS: AUTOMATED NEUTROPHIL # 7.2 TH/MM3 (1.8-7.7); BASOPHIL # 0.1 TH/MM3 (0-0.2); BASOPHIL % 0.8 % (0.0-2.0); EOSINOPHIL # 0.1 TH/MM3 (0-0.4); EOSINOPHIL % 1.4 % (0.0-4.0); HEMATOCRIT 40.1 % (35.0-46.0); HEMO FLAGS DIFF FINAL; LYMPH % 14.7 % (9.0-44.0); LYMPHOCYTE # 1.4 TH/MM3 (1.0-4.8); MEAN CELL VOLUME 86.4 FL (80.0-100.0); MEAN CORPUSCULAR HGB CONC 33.5 % (32.0-36.0); MONO % 10.1 % (0.0-8.0); PLATELET COUNT 413 TH/MM3 (150-450); RED BLOOD COUNT 4.64 MIL/MM3 (4.00-5.30); RED CELL DISTRIBUTION WIDTH 13.7 % (11.6-17.2); WHITE BLOOD COUNT 9.8 TH/MM3 (4.0-11.0)
[2016-06-14 11:23] LABS: APTT (PATIENT) 28.5 SEC (24.3-30.1); INTERNATIONAL NORMALIZED RATIO 0.9 RATIO; PROTHROMBIN TIME - PATIENT 10.1 SEC (9.8-11.6)
[2016-06-14 11:31] LABS: BACTERIA, URINE RARE /hpf; BLOOD, URINE TRACE (NEG); GLUCOSE,URINE NEG (NEG); KETONE, URINE NEG (NEG); NITRITE,URINE NEG (NEG); SQUAMOUS EPITHELIAL CELL URINE 6 /hpf (0-5); URINE COLOR YELLOW (YELLW/STRAW)
--- NOTE | 2016-06-14 11:37 | RADRPT ---
EXAM DATE/TIME: 06/14/2016 11:15 [facility] COMPARISON: CHEST PA & LAT, March 01, 2016, 12:41. INDICATIONS : Evaluate for pneumonia, pneumothorax or communicable disease. Pre op left knee replacement. MEDICAL HISTORY : None. SURGICAL HISTORY : None. ENCOUNTER: Initial ACUITY: 1 day PAIN SCORE: 0/10 LOCATION: Bilateral chest FINDINGS: PA and lateral views of the chest demonstrate the lungs to be symmetrically aerated without evidence of mass, infiltrate or effusion. The cardiomediastinal contours are unremarkable. Osseous structure s are intact. CONCLUSION: No acute disease. Romero Renner MD FACR on June 14, 2016 at 11:35 Board Certified Radiologist. This report was verified electronically.
[2016-06-14 11:39] LABS: ALKALINE PHOSPHATASE 125 U/L (45-117); ALT (GPT) 15 U/L (10-53); ANION GAP 11 MEQ/L (5-15); AST (GOT) 14 U/L (15-37); BICARBONATE 26.2 MEQ/L (21.0-32.0); BLOOD UREA NITROGEN 20 MG/DL (7-18); CHLORIDE 102 MEQ/L (98-107); GLOMERULAR FILTRATION RATE 87 ML/MIN (>89); GLUCOSE,FASTING 92 MG/DL (74-99); POTASSIUM 4.2 MEQ/L (3.5-5.1); SODIUM (NA) 139 MEQ/L (136-145); TOTAL BILIRUBIN ADULT 0.5 MG/DL (0.2-1.0)
[2016-06-14 11:43] LABS: WESTERGREN SEDIMENTATION RATE 55 mm/hr (0-30)
[2016-06-14 11:43] LABS: COMMENT (UR) CULT NOT INDICATED; CULTURE IF INDICATED CULT NOT INDICATED
--- NOTE | 2016-06-15 10:41 | EKG ---
Date Performed: 06/14/2016 Time Performed: 10:22:09 PTAGE: 76 years EKG: SINUS BRADYCARDIA LOW QRS VOLTAGE IN PRECORDIAL LEADS INCOMPLETE RIGHT BUNDLE BRANCH BLOCK BORDERLINE ECG Compared to prior tracing no significant change PREVIOUS TRACING 03/01/2016 11.50.40 DOCTOR: Christina Copeland Interpretating Date/Time 06/15/2016 10:34:56
== END ==
LOC: CPRE 09:53
PROVIDERS: ATTEND Orthopaedic Surgery Sports Medicine
DX: Z01.810 Encounter for preprocedural cardiovascular examination (principal); Z01.811 Encounter for preprocedural respiratory examination; Z01.812 Encounter for preprocedural laboratory examination; Z01.818 Encounter for other preprocedural examination; Z96.60 Presence of unspecified orthopedic joint implant; Z79.01 Long term (current) use of anticoagulants; M17.12 Unilateral primary osteoarthritis, left knee; M25.60 Stiffness of unspecified joint, not elsewhere classified
CPT/HCPCS: 36415; 71020; 80053; 81001; 85025; 85610; 85652; 85730; 93005